=== PATIENT | male | born 2000 | race Caucasian/White ===

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

== ENCOUNTER 2022-07-06 17:43 | Emergency (ER) | payer MEDICAID ==
[~2022-07-06] VITALS: Ht 177.8 cm; Wt 81.6 kg
--- NOTE | 2022-07-06 18:20 | NUR ---
bib mother coheadache , nausea vomiting and abdl pain since last night. mother gave benadryl, milk magnesia ambulatory in pain 11/17, not in cardio resp distress aox4 cooperative. nursing care done awaiting for md orders.
--- NOTE | 2022-07-06 18:40 | NUR ---
PT HOOKED TO MONITOR AND PULSE
--- NOTE | 2022-07-06 18:56 | NUR ---
PA is at bedside
[2022-07-06] MEDS ORDERED: KETOROLAC TROMETHAMINE 15 MG/ML VIAL ONE (19:14)
[2022-07-06] MEDS ORDERED: PANTOPRAZOLE 40 MG VIAL ONE (19:14)
[2022-07-06] MEDS ORDERED: MAG HYDROX/AL HYDROX/SIMETH 30 ML UDC ONE (19:14)
[2022-07-06] MEDS ORDERED: LIDOCAINE VISCOUS 2% UD 15 ML UDC ONE (19:14)
[2022-07-06] MEDS ORDERED: IV NS 0.9% 1,000 ML BAG IV ONE (19:30)
[2022-07-06] MEDS ORDERED: MAG HYDROX/AL HYDROX/SIMETH 30 ML UDC PO ONE (19:30)
[2022-07-06] MEDS ORDERED: PANTOPRAZOLE 40 MG VIAL IV ONE (19:30)
[2022-07-06] MEDS ORDERED: KETOROLAC TROMETHAMINE INJ 30 MG/ML VIAL IV ONE (19:30)
[2022-07-06] MEDS ORDERED: LIDOCAINE VISCOUS 2% UD 15 ML UDC MM ONE (19:30)
[2022-07-06 19:34] LABS: CALCIUM, SERUM 9.6 mg/dL (8.5-10.1); POTASSIUM 4.6 mmol/L (3.5-5.1)
--- NOTE | 2022-07-06 19:36 | NUR ---
RAC 18GA. BLOOD WORK DRAWN. IV FLUIDS STARTED.
[2022-07-06 19:57] LABS: BASOPHILS % (AUTO) 0.2 % (0.0-2.0); EOSINOPHILS % (AUTO) 0.1 % (0.0-6.0); HEMATOCRIT 43 % (39-51); HEMOGLOBIN 14.4 g/dL (13.5-17.5); LYMPHOCYTES # (AUTO) 0.9 K/uL (0.8-4.8); LYMPHOCYTES % (AUTO) 6.4 % (20.0-44.0); MEAN CORPUSCULAR HGB CONC 33 g/dl (31.0-36.0); MEAN CORPUSCULAR VOLUME 87 fL (80-96); MONOCYTES % (AUTO) 6.8 % (2.0-12.0); NEUTROPHILS # (AUTO) 12.5 K/uL (1.8-8.9); NEUTROPHILS % (AUTO) 86.5 % (43.0-81.0); PLATELET COUNT (AUTO) 328 K/uL (150-450); RED BLOOD CELL COUNT(AUTO) 5.02 MIL/uL (4.5-6.0); WHITE BLOOD COUNT (AUTO) 14.5 K/uL (4.3-11.0)
[2022-07-06 20:08] LABS: ALBUMIN 4.6 g/dL (3.4-5.0); BILIRUBIN,DIRECT 0.3 mg/dL (0.0-0.2); BILIRUBIN,TOTAL 1.4 mg/dL (0.2-1.0); TOTAL PROTEIN, SERUM 8.1 g/dL (6.4-8.2)
[2022-07-06] MEDS ORDERED: OMEP20TA5 PO (20:22)
--- NOTE | 2022-07-06 20:30 | NUR ---
Patient discharged to home in stable condition. Written and verbal after care instructions given. Patient verbalizes understanding of instruction. IV removed. Catheter intact and site benign. Pressure and 4x4 applied to site. No bleeding noted.
[2022-07-07 01:26] VITALS: BP 124/79
== END 2022-07-06 20:30 | disposition home or self-care (01) ==
LOC: ER 17:57
DX: R10.13 Epigastric pain (principal); Z79.899 Other long term (current) drug therapy
CPT/HCPCS: 99284; 96374; 96361; 96375; 85025; 80048; 83690; 80076; 36415; J7030; C9113; J1885